=== PATIENT | male | born 1950 | race Caucasian/White ===

== ENCOUNTER 2019-11-03 10:49 | Outpatient (CLI) | payer OTHER | END 2019-11-03 15:06 | disposition home or self-care (01) | LOC: NUCLEAR 10:49 | DX: I26.99 Other pulmonary embolism without acute cor pulmonale (principal) | CPT/HCPCS: 78580; A9540 ==

== ENCOUNTER 2020-03-15 09:22 | Inpatient (IN) | payer OTHER ==
[~2020-03-15] VITALS: Ht 160 cm; Wt 68.0 kg
[2020-03-15] MEDS ORDERED: PLAVIX75 MG (09:41)
[2020-03-15] MEDS ORDERED: ZETIA10 MG (09:42)
[2020-03-15] MEDS ORDERED: CRESTOR20 MG (09:42)
[2020-03-15] MEDS ORDERED: ASA81 MG (09:42)
[2020-03-18] MEDS ORDERED: BREO ELLIPTA I1 EACH IH (07:59)
== END 2020-03-23 18:25 | disposition home or self-care (01) | DRG 195 ==
LOC: ER 09:22 → MEDJ 17:19 → SURH 03-22 14:35 → SURG 03-23 09:17
PROVIDERS: ADMIT Internal Medicine
PROC: CB2YYZZ Tomographic (Tomo) Nuclear Medicine Imaging of Respiratory System using Other Radionuclide (ICD-10-PCS; principal; 2020-03-15)
PROC: 8E0ZXY6 Isolation (ICD-10-PCS; 2020-03-16)
DX: J15.7 Pneumonia due to Mycoplasma pneumoniae (principal); I10 Essential (primary) hypertension; I25.10 Atherosclerotic heart disease of native coronary artery without angina pectoris; E78.5 Hyperlipidemia, unspecified